=== PATIENT | male | born 1940 | race Caucasian/White ===

== ENCOUNTER 2023-10-04 18:22 | Observation (INO) | payer OTHER, SELFPAY ==
[2023-10-04 12:29] VITALS: BP 130/70
[2023-10-04 12:35] VITALS: BMI 24.6
[2023-10-04 13:02] LABS: % Basophils 0.6 % (0-2); % Eosinophils 4.4 % (0-6); % Immature Granulocytes 0.3 % (0-0.5); % Lymphocytes 28.5 % (20.5-51.1); % Monocytes 8.5 % (1.7-9.3); % Neutrophils 57.7 % (42.2-75.2); Absolute Basophils 0.1 10^3/uL (0-0.2); Absolute Eosinophils 0.3 10^3/uL (0-0.7); Absolute Lymphocytes 2.2 10^3/uL (1.2-3.4); Absolute Monocytes 0.7 10^3/uL (0.1-0.6); Absolute Neutrophils 4.5 10^3/uL (1.4-6.5); Hematocrit 38.9 % (39.0-52.0); Hemoglobin 13.3 g/dL (13.0-18.0); Mean Corp Hgb Conc. 34.2 g/dL (33.0-37.0); Mean Corpuscular Hgb 30.3 pg (27.0-31.0); Mean Corpuscular Volume 88.6 fL (80.0-94.0); Mean Platelet Volume 8.5 fL (7.4-10.4); Nucleated Red Blood Cells % 0 % (-); Platelet Count 282 10^3/uL (130-400); Red Blood Cell Count 4.39 10^6/uL (4.70-6.10); Red Cell Dist. Width 13.2 % (11.5-14.5); White Blood Cell Count 7.8 10^3/uL (4.8-10.8)
[2023-10-04 13:10] LABS: ALT (SGPT) 24 U/L (0-50); AST (SGOT) 36 U/L (17-59); Albumin 3.7 g/dl (3.5-5.0); Alkaline Phosphatase 126 U/L (38-126); Blood Urea Nitrogen 21 mg/dl (9-20); Calcium 9.1 mg/dl (8.4-10.2); Carbon Dioxide 28 mmol/L (22-30); Chloride 103 mmol/L (98-107); Glucose 104 mg/dl (70-99); Potassium 5.3 mmol/L (3.5-5.1); Sodium 133 mmol/L (135-145); Total Bilirubin 0.7 mg/dl (0.2-1.3); Total Protein 6.2 g/dl (6.3-8.2); eGFR > 60.00
[2023-10-04 13:16] LABS: Troponin I 0.044 ng/ml
--- NOTE | 2023-10-04 13:22 | ED.GENMED ---
History of Present Illness
General
Chief Complaint: Musculo-Skeletal Complaint
Time Seen by Provider: 10/04/23 13:22
Travel History
Have you had any contact with someone who has COVID-19?: No
Do you have any symptoms of coronavirus? Fever > 100 degrees, chills, cough, shortness of breath, sore throat, loss of taste or smell, muscle aches, or headache?: No
History of Present Illness
History of Present Illness:
HPI: Patient presents due to left shoulder pain. He does have a history of CABG from this past August. He denies chest pain. He tells me that either his deicer finisher or cardiothoracic surgeon sent him here for further evaluation
EXAM:
GENERAL: Well appearing in mild distress
HEENT: Moist oral mucosa
CARDIOVASCULAR: No murmurs, normal heart rate and rhythm, No chest wall tenderness
PULMONARY: No respiratory distress, breath sounds are clear and equal
ABDOMEN: Soft with no peritoneal signs, no tenderness
NEUROLOGIC: Excellent strength all extremities, no coordination deficits
PSYCHIATRIC: Appropriate mental status, normal insight and judgement
EXTREMITIES: Nontender, no edema, moves all extremities equally, there is no significant tenderness to palpation in the biceps region or in the shoulder region
SKIN: No rash, no lesions
ED COURSE:
12:45 PM: I initially evaluated patient
NUMBER AND COMPLEXITY OF PROBLEMS ADDRESSED AT THE ENCOUNTER
� Chronic conditions affecting care: Former smoker, CABG/CAD, high blood pressure, hyperlipidemia, prostate/skin cancer
� Acute Exacerbation and/or Progression of Chronic Illness:
� Differential Diagnosis includes: Musculoskeletal type of pain, ACS
AMOUNT AND/OR COMPLEXITY OF DATA TO BE REVIEWED AND ANALYZED
� I performed an independent evaluation of and my interpretation is:
EKG: Sinus 72, left axis, bifascicular block without significant change from EKG from yesterday, however the ST segments are somewhat changed in comparison to 08/27/2023
CT:
X-rays: I personally reviewed x-rays of the chest and shoulder which shows no clear abnormality
Laboratory Studies: Troponin today 0.044 with unchanged second troponin, potassium borderline elevated at 5.3
Other:
� Review of other/old records: I reviewed the discharge summary from 08/30/2023, the patient had a CABG this past admission (5 weeks ago), his troponin last admission peaked at 23.8
� Clinical information was obtained by an independent historian: Spoke to family at bedside.
� Prescriptions/Medications Considered but not given:
� Further testing considered but not performed:
RISK OF COMPLICATIONS AND/OR MORBIDITY OR MORTALITY OF PATIENT MANAGEMENT
� Social determinants of health affecting care: Lives at home
� Discussion with other providers: Discussed with Dr. Bell, ultimate recommendation is for him to stay on hospital service for pain control
� Escalation of care including admission/observation vs risk of discharge considered: The patient's pain is poorly controlled despite tramadol. Will give IV Dilaudid. Troponin is slightly elevated. However it is much lower
than prior. Cardiology did evaluate in the ER.
Phy Exam
Physical Exam
Physical Exam:
See HPI
Course
Orders/Labs/Results
Orders:
Orders
10/04/23 12:34
EKG [Electrocardiogram (*1)] Urgent
Reason for Study: Other
Other Reason for Exam: c/o left shoulder and arm pain. Recent CABG
10/04/23 12:35
EKG- Treatment ONCE
10/04/23 12:44
CMP [Comprehensive Metabolic Panel] Urgent
Complete Blood Count/With Diff Urgent
Troponin I Urgent
10/04/23 13:39
CR Chest - 2 Views Urgent
Comment:
Reason For Exam: L pain
10/04/23 13:40
Shoulder, Left 2 View CR [CR Shoulder - Left Min 2 View*] Urgent
Comment:
Reason For Exam: pain
10/04/23 13:43
Tramadol HCl [Ultram] 50 mg PO NOW STA
10/04/23 16:26
Troponin I Urgent
10/04/23 16:45
HYDROmorphone [Dilaudid] 0.5 mg IV NOW STA
10/04/23 17:37
Sodium Zirconium Cyclosilicate [Lokelma] 10 gram PO NOW STA
Abnormal Lab Results
10/04/23 10/04/23
12:44 16:26
RBC 4.39 L 10^6/uL
(4.70-6.10)
Hct 38.9 L %
(39.0-52.0)
Absolute Monos (auto) 0.7 H 10^3/uL
(0.1-0.6)
Sodium 133 L mmol/L
(135-145)
Potassium 5.3 H mmol/L
(3.5-5.1)
BUN 21 H mg/dl
(9-20)
Glucose 104 H mg/dl
(70-99)
Troponin I 0.044 H* ng/ml 0.043 H* ng/ml
Total Protein 6.2 L g/dl
(6.3-8.2)
10/04/23 12:44
10/04/23 12:44
Vital Signs
Initial and Last Documented VS:
Initial Vital Signs
Temp Pulse Resp BP Pulse Ox
97.9 F 75 18 130/70 97
10/04/23 12:29 10/04/23 12:29 10/04/23 12:29 10/04/23 12:29 10/04/23 12:29
Last Documented Vital Signs
Temp Pulse Resp BP Pulse Ox
97.9 F 64 16 116/64 96
10/04/23 12:29 10/04/23 16:00 10/04/23 16:00 10/04/23 16:00 10/04/23 16:00
*Critical Care Note
Total Time (30-74mins, 75-104mins- exclusive of procedures): Not Applicable
ED Attending Note
-
Portions of this chart may have been created with voice recognition software.� Occasional wrong word or��sound alike� substitutions may have occurred due to the inherent limitations of voice recognition software.
Discharge Plan
Departure
Patient Disposition: Admit
Date of Disposition: 10/04/23
Time of Disposition: 16:49
Presentation/result/management discussed w/ accepting MD/DO: Hospitalist
Discharge Problem:
Intractable pain
Prescriptions:
No Action
therapeutic multivitamin Tablet
1 tab PO DAILY
docusate sodium [Colace] 100 mg Capsule
100 mg PO QPM
aspirin [Children's Aspirin] 81 mg Tablet,Chewable
81 mg PO DAILY Qty: 0 3RF
atorvastatin 80 mg Tablet
80 mg PO QPM Qty: 30 2RF
clopidogrel 75 mg Tablet
75 mg PO DAILY Qty: 90 3RF
acetaminophen 325 mg Tablet
650 mg PO Q6HPRN PRN (Reason: mild pain,headache) Qty: 0 0RF
lisinopril 20 mg Tablet
20 mg PO DAILY
metoprolol tartrate 25 mg tablet
50 mg PO DAILY
Referrals:
Kade Stover MD [Family Provider] -
Interventions
Interventions:
*Risk Screen - Suicide Last Done: 10/04/23 14:41
*Neglect/Abuse Screening Last Done: 10/04/23 14:41
*ED COVID-19 Vaccine History Last Done: 10/04/23 12:29
ED-Musculoskeletal Assessment Last Done: 10/04/23 14:34
[2023-10-04 13:25] VITALS: BP 132/68
[2023-10-04 14:00] VITALS: BP 123/68
[2023-10-04] MEDS: ULTRAM 50 MG PO (14:11)
[2023-10-04 16:00] VITALS: BP 116/64
--- NOTE | 2023-10-04 16:11 | CON.CAR ---
Addendum entered and electronically signed by Isabelle Valadez MD 10/04/23 17:49:
I saw and examined the patient.
The Missing Persons Investigator's note was reviewed and I agree with the note.
Comment: Mr. Norris is known to me from recent admission for acute coronary syndrome with cath showing multivessel disease for which she underwent a CABG. Briefly he is an 82-year-old gentleman with past medical history of hypertension,
hyperlipidemia, baseline bifascicular block, recent NSTEMI with troponin peaking at 23 in August 2023 status post off-pump CABG with PARSONS to LAD, SVG to OM and PDA along with BLAIR 35mm clip on August 26, 2023 presenting with episodic left
shoulder blade and left bicep pain occurring since without particular trigger. These episodes certainly are not exertional in nature. He has been ambulating within the home and taking flights of stairs within his home without worsening of
symptoms. No improvement with Tylenol. Given ongoing symptoms he was directed to the emergency department for further evaluation. He received 1 dose of tramadol in the emergency department with some relief in the discomfort.
Vital signs are stable. ECG with no obvious acute ischemic changes. Lab work reviewed. Exam notable for an older gentleman in no acute distress, normal S1 and S2, no murmurs, rubs or gallops, no JVD, lungs are clear to auscultation bilaterally,
sternotomy scar is well-healing, warm extremities without significant edema.
Troponin on presentation was 0.044 with repeat at 0.043.
Recommendations:
-By history, this does not sound to be cardiac in nature. So far no evidence of acute coronary syndrome. Troponins are very low-level and flat with no acute ischemic changes on EKG. His symptoms are different from his recent ACS event.
-Given recent CABG, for thoroughness, we will trend out 3 total troponins and check an echocardiogram.
-Currently, no indication for further ischemic workup pending troponin trend and echocardiogram results.
-Pain control per primary team.
Isabelle Valadez MD, [facility], [facility]
Original Note:
Consultation
Consultation Request
Date/Time Consultation Requested: 1/30/24
Date/Time Consultation Performed: 10/04/23
Requesting Provider: Dr. Huerta in the ER
Performing Provider: Dr. Valadez
Reason for Consultation: Left arm and bicep pain
Medical History
-
History of Present Illness:
Patient came to [facility] today with left shoulder blade and biceps pain and cardiology is consulted. Patient came to [facility] with [facility] on 08/22/23. Hs initial Troponin was 1.09 and he was taken to the director of cardiac cath lab that day and found to have multivessel CAD.
Patient had CABG 08/26/23. He did well and was discharged to home 08/30/23. Patient was seen in the CT surgery office 09/26/23 and was doing well. He started with the left scapular and biceps pain on 09/28/23 and then had an intense night of pain on
09/29/23 where he says biceps pain lasted for hours and nothing made it better. No relief with Tylenol at home. No relief with massage of the area. Pain is unchanged with activity like stairs in his home. Patient called the CT surgery office and they
sent him for an outpatient ECG yesterday that was unchanged from previous. Due to ongoing pain the patient came to the ER today. Initial Troponin 0.044 and then 0.043. Last Troponin prior to discharge last admission was from 08/23/23 and it was
20.3. No rashes.
PMH:
CAD
s/p NSTEMI peak Troponin 08/2023
s/p off-pump CABG with a PARSONS to LAD, saphenous vein graft to OM and saphenous vein graft to PDA, BLAIR #35mm clip 08/26/23
HTN
Hyperlipidemia
Bifascicular block
Past Medical History
Past Surgical History: Cardiac (CABG) and Orthopedic
Social History
Tobacco: Former Smoker
Alcohol: None
Drug: None
Personal:
Living: With Family
Employment: Retired
Family History
Family History: CAD
Allergies / Home Medications
Allergy/AdvReac Type Severity Reaction Status Date / Time
No Known Allergies Allergy Verified 10/04/23 12:34
Medication Instructions Recorded Confirmed Type
docusate sodium 100 mg capsule 100 mg PO QPM Constipation 08/22/23 10/04/23 History
(Colace)
therapeutic multivitamin 1 tab PO DAILY Supplement 08/22/23 10/04/23 History
acetaminophen 325 mg tablet 650 mg PO Q6HPRN PRN mild 08/29/23 10/04/23 Rx
pain,headache #0 tabs
aspirin 81 mg chewable tablet 81 mg PO DAILY Blood clot 08/29/23 10/04/23 Rx
(Children's Aspirin) prevention/tx #0 tabs
atorvastatin 80 mg tablet 80 mg PO QPM High cholesterol #30 08/29/23 10/04/23 Rx
tabs
clopidogrel 75 mg tablet 75 mg PO DAILY Blood clot 08/29/23 10/04/23 Rx
prevention/tx #90 tabs
lisinopril 20 mg tablet 20 mg PO DAILY 10/04/23 10/04/23 History
metoprolol tartrate 25 mg tablet 50 mg PO DAILY Heart 10/04/23 10/04/23 History
disease/condition
Review of Systems
-
History Source: Patient and Family ( sitting bedside helping with HPI)
All other systems: Negative unless noted
Physical Exam
Vital Signs
Temp Pulse Resp BP Pulse Ox
97.9 F 65 18 123/68 98
10/04/23 12:29 10/04/23 14:00 10/04/23 12:10/04/23 14:00 10/04/23 14:00
GEN: No distress, AAO x3
HEENT: EOMI, wearing glasses, MMM
LUNGS: CTA B/L, no wheezes or rales
CV: Reg, S1/S2, no murmur
ABD: soft, BS+, NT, ND
EXT: No clubbing, cyanosis, lesions or edema B/L
NEURO: Gross non-focal
SKIN: Warm, dry and pink. No rash
Lab Results
10/04/23 12:44
10/04/23 12:44
Troponin I 0.044 ng/ml H* 10/04/23 12:44
Impression / Plan
-
PCP: Dr. Stover
Cardiology: Dr. Stanley, last seen for pre-op clearance 12/02/16
Impression:
Left arm and biceps pain
CAD
s/p NSTEMI peak Troponin 08/2023
s/p off-pump CABG with a PARSONS to LAD, saphenous vein graft to OM and saphenous vein graft to PDA, BLAIR #35mm clip 08/26/23
HTN
Hyperlipidemia
Bifascicular block
Hyperkalemia
Echo 12/07/2016:�EF 55 to 60%, normal regional wall motion, mild LVH, stage I diastolic dysfunction, normal RV size and function
Cardiac cath 08/22/2023: 70% distal left main, 40-50% ostial LAD, 50% mid LAD, small ramus with luminal irregularities, 50% ostial left circumflex, 60-70% proximal circumflex, hazy 80/85% proximal OM1 stenosis, RCA with 70% proximal stenosis, no PCI
performed
Echo 08/22/2023: EF 55-60%, trace MR, mild TR
Plan:
-Patient came to [facility] today with left shoulder blade and biceps pain and cardiology is consulted. Patient came to [facility] with SSCP on 08/22/23. Hs initial Troponin was 1.09 and he was taken to the director of cardiac cath lab that day and found to have multivessel CAD.
Patient had CABG 08/26/23. He did well and was discharged to home 08/30/23. Patient was seen in the CT surgery office 09/26/23 and was doing well. He started with the left scapular and biceps pain on 09/28/23 and then had an intense night of pain on
09/29/23 where he says biceps pain lasted for hours and nothing made it better. No relief with Tylenol at home. No relief with massage of the area. Pain is unchanged with activity like stairs in his home. Patient called the CT surgery office and they
sent him for an outpatient ECG yesterday that was unchanged from previous. Due to ongoing pain the patient came to the ER today. Initial Troponin 0.044 and then 0.043. Last Troponin prior to discharge last admission was from 08/23/23 and it was
20.3. No rashes.
-Patient with fairly constant left scapular and biceps pain. It is different than what he described as his angina last admission.
-Troponin could still be trending down from [place] last admission.
-Check echo
-Tramadol in the ER helped, would continue.
-Doubt ACS at this time.
-Recheck BMP and Troponin tonight. Hyperkalemia on ER labs could be hemolysis.
-Hgb stable
[2023-10-04] MEDS: DILAUDID 0.5 MG IV (16:54)
[2023-10-04 17:19] LABS: Troponin I 0.043 ng/ml
--- NOTE | 2023-10-04 17:19 | HPS.HSE ---
Addendum entered and electronically signed by Omer Hardy MD 10/04/23 18:56:
I saw and examined the patient.
The PLUGGER WORKER or PA's note was reviewed and I agree with the note.
Comment: 82-year-old male with recent CABG came to the hospital with left shoulder pain which is radiating to his left bicep. Seen by cardiology in the ED. Monitor EKG. Trend troponin. X-ray does not show any fracture. admit to tele.
General:�Comfortable, Conversant and Pain (Left arm to left bicep); No Fever
HEENT:�NormoCephalic, Anicteric, PERRLA, [place] Conjunctivae and No Ptosis
Respiratory:�Clear; No Wheezes, Rales or Rhonchi
Cardiac:�S1/S2, Regular Rhythm and Other (Sternal incision intact negative erythema or drainage); No Murmur, Rub, Gallop or Peripheral Edema
Breast:�Deferred by me
GI:�Soft, Non Tender, Non Distended, Normal Bowel Sounds and No Hepatosplenomegaly
Rectal:�Deferred by Provider
Genito-urinary:�Deferred by me
Musculoskeletal:�No Clubbing, No Cyanosis and No Edema
Skin:�Warm and Dry; No Rash or Jaundice
Neuro:�AO x 3, No Motor Deficits, Nonfocal/grossly intact, Cranial Nerves Intact and No Sensory Deficits; No Slurred Speech or Facial Droop
Psych:�Calm
Original Note:
Family Physician
-
Family Physician: Kade Stover
Chief Complaint
-
Left shoulder pain to left bicep
History of Present Illness
82-year-old male complaining of left shoulder plain to left bicep over the past 5 days. He reports it started after playing videogames at a computer although it does not change with movement. He denies radiation of pain, fever, chills, midsternal
chest pain, shortness breath, cough, abdominal pain, nausea, vomiting, diarrhea, urinary symptoms. He was seen yesterday and had EKG showed bifascicular block with lateral ST abnormality that was not as prominent at discharge on 08/27 he was sent
to ER for evaluation
The patient had a recent admission 08/22 - 08/30/2023 status post non-ST elevation [place] CABG x3 left internal mammary artery to LAD, reverse origin his right greater saphenous vein from ascending aorta to obtuse marginal coronary artery and segment of
reverse right greater saphenous vein from ascending aorta to posterior descending artery. Along with left atrial appendage ligation with clip
His other past medical history includes hypertension, hyperlipidemia, prostate cancer status post prostatectomy, history of spinal surgery, history of right hip replacement, GERD.
Medical History
Past Medical History
Past Medical History: Reports Other (Hypertension, hyperlipidemia, bifascicular heart block, NSTEMI August 2023, spinal stenosis, OA)
Past Surgical History: Reports Orthopedic and Other
Additional Past Surgical History:
08/2023 non-ST elevation [place] CABG x3 left internal mammary artery to LAD, reverse origin his right greater saphenous vein from ascending aorta to obtuse marginal coronary artery and segment of reverse right greater saphenous vein from ascending aorta
to posterior descending artery. Along with left atrial appendage ligation with clip
Social History
Tobacco: Former Smoker
Alcohol: None
Drug: None
Personal:
Living: With Family
Employment: Retired
Family History
Family History: Other (Brother rheumatic fever history of SVT age 63, father alcohol abuse COPD, mother unsure, other sister living in mental health facility)
Allergies / Home Medications
Allergies reflects when Allergies were last updated in [employer].
Home Medications with original date entered in [employer]
Allergy/Medication List:
Allergies
Allergy/AdvReac Type Severity Reaction Status Date / Time
No Known Allergies Allergy Verified 10/04/23 12:34
Home Medications
docusate sodium 100 mg capsule (Colace) 100 mg PO QPM Constipation 08/22/23
therapeutic multivitamin 1 tab PO DAILY Supplement 08/22/23
acetaminophen 325 mg tablet 650 mg PO Q6HPRN PRN mild pain,headache #0 tabs 08/29/23
aspirin 81 mg chewable tablet (Children's Aspirin) 81 mg PO DAILY Blood clot prevention/tx #0 tabs 08/29/23
atorvastatin 80 mg tablet 80 mg PO QPM High cholesterol #30 tabs 08/29/23
clopidogrel 75 mg tablet 75 mg PO DAILY Blood clot prevention/tx #90 tabs 08/29/23
lisinopril 20 mg tablet 20 mg PO DAILY 10/04/23
metoprolol tartrate 25 mg tablet 50 mg PO DAILY Heart disease/condition 10/04/23
Review of Systems
-
History Source: Patient and Family ( at bedside)
Constitutional: Denies Fever or Fatigue
EENT: Denies Sore Throat or Runny Nose
Respiratory: Denies Cough or Trouble Breathing
Cardiac: Denies Chest Pain, Diaphoresis, Palpitations or Syncope
Abdomen/GI: Denies Abdominal Pain, Nausea, Vomiting, Diarrhea, Constipated, Bloody Stools or Black Stools
: Denies Frequency, Flank Pain, Incontinence or Difficulty Voiding
Musculoskeletal: Reports Other (Pain left shoulder to left bicep); Denies Joint Pain or Edema
Skin: Denies Itching or Rash
Neurological: Denies Dizzy, Headache or Weakness
Endocrine: Reports No Symptoms
Hematologic/Lymphatic: Reports No Symptoms
Psych: Reports Calm
Physical Exam
Vital Signs
Vital Signs
Temp Pulse Resp BP Pulse Ox
97.9 F 64 16 116/64 96
10/04/23 12:29 10/04/23 16:00 10/04/23 16:00 10/04/23 16:00 10/04/23 16:00
Physical Exam
General: Comfortable, Conversant and Pain (Left arm to left bicep); No Fever
HEENT: NormoCephalic, Anicteric, PERRLA, [place] Conjunctivae and No Ptosis
Respiratory: Clear; No Wheezes, Rales or Rhonchi
Cardiac: S1/S2, Regular Rhythm and Other (Sternal incision intact negative erythema or drainage); No Murmur, Rub, Gallop or Peripheral Edema
Breast: Deferred by me
GI: Soft, Non Tender, Non Distended, Normal Bowel Sounds and No Hepatosplenomegaly
Rectal: Deferred by Provider
Genito-urinary: Deferred by me
Musculoskeletal: No Clubbing, No Cyanosis and No Edema
Skin: Warm and Dry; No Rash or Jaundice
Neuro: AO x 3, No Motor Deficits, Nonfocal/grossly intact, Cranial Nerves Intact and No Sensory Deficits; No Slurred Speech or Facial Droop
Psych: Calm
Laboratory Results
-
10/04/23 12:44
10/04/23 12:44
Laboratory Results
Total Bilirubin 0.7 mg/dl (0.2-1.3) 10/04/23 12:44
AST 36 U/L (17-59) 10/04/23 12:44
ALT 24 U/L (0-50) 10/04/23 12:44
Alkaline Phosphatase 126 U/L (38-126) 10/04/23 12:44
Troponin I 0.044 ng/ml H* 10/04/23 12:44
Data Reviewed
-
Lab Data: Labs Reviewed by me
Impression/Plan
-
Impression/plan:
Observation telemetry
#Left periscapular pain to bicep with EKG changes concern for ACS
-Troponin 0.043, 2nd 0.042, trend troponin he had Trope as high as 23 during August admit
-Follow EKG
-Consult [facility] cardiology
prn dilaudid
EKG from 10/03/2023: HR 62 bpm NSR bifascicular block, T wave inversion in anterolateral leads compared to prior August 27, 2023
EKG today 10/04/2023: 72 bpm NSR bifascicular block T wave inversions anterior lateral leads same as compared to yesterday October 03, 2023
Shoulder x-ray no acute fracture or dislocation
CXR: No acute cardiopulmonary process
#Non-ST elevation [place] 08/22/2023
status post CABG x [address] Hamm
-Continue aspirin, atorvastatin 80 mg, Plavix 75 mg x 1 year, Protonix 40 mg daily, metoprolol tartrate 25 mg every 12 hours
#HTN�benign
116/64
-Continue metoprolol tartrate 25 mg twice daily
#HLD
-Continue atorvastatin 80 mg at bedtime
#GERD
Continue Protonix 40 mg daily
DVT prophylaxis
Subcu heparin
Full code
[2023-10-04] MEDS: LOKELMA 10 GRAM PO (18:01)
[2023-10-04 18:57] VITALS: BMI 24.1
[2023-10-04 18:59] VITALS: BP 152/72
[2023-10-04] MEDS: LIPITOR 80 MG PO (19:47)
[2023-10-04] MEDS: HEPARIN 5000 UNITS SC (19:47)
--- NOTE | 2023-10-04 20:15 | PTCARENOTE ---
Received patient from ED, AAOx4. Patient ambulated to his bed with stead gait. No c/o pain at this time. Patient reports that when he takes his pills that occasionally they feel like they get stuck in his throat. Speech screening done. Patient
took medications and water without difficulty. Oriented to unit, call marquez in reach. Plan of care continues
[2023-10-04 21:37] LABS: Blood Urea Nitrogen 19 mg/dl (9-20); Calcium 9.1 mg/dl (8.4-10.2); Carbon Dioxide 30 mmol/L (22-30); Chloride 98 mmol/L (98-107); Estimated Creatinine Clearance 52 ml/min; Glucose 113 mg/dl (70-99); Potassium 3.7 mmol/L (3.5-5.1); Sodium 134 mmol/L (135-145); eGFR > 60.00
[2023-10-04 21:40] LABS: Troponin I 0.044 ng/ml
[2023-10-04 23:39] VITALS: BP 116/71
[2023-10-05] VITALS (7 sets, daily range): BP systolic 105–127; BP diastolic 49–73; PULSE 67–79; O2SAT 96–97
[2023-10-05] MEDS: TYLENOL 650 MG PO (04:09)
[2023-10-05 08:01] LABS: % Basophils 0.6 % (0-2); % Lymphocytes 33.8 % (20.5-51.1); % Monocytes 9.4 % (1.7-9.3); % Neutrophils 49.2 % (42.2-75.2); Absolute Eosinophils 0.4 10^3/uL (0-0.7); Absolute Lymphocytes 2.1 10^3/uL (1.2-3.4); Absolute Monocytes 0.6 10^3/uL (0.1-0.6); Hematocrit 37.9 % (39.0-52.0); Hemoglobin 12.8 g/dL (13.0-18.0); Mean Corp Hgb Conc. 33.8 g/dL (33.0-37.0); Mean Corpuscular Hgb 29.9 pg (27.0-31.0); Mean Corpuscular Volume 88.6 fL (80.0-94.0); Mean Platelet Volume 8.7 fL (7.4-10.4); Nucleated Red Blood Cells % 0 % (-); Platelet Count 241 10^3/uL (130-400); Red Blood Cell Count 4.28 10^6/uL (4.70-6.10); Red Cell Dist. Width 13.2 % (11.5-14.5); White Blood Cell Count 6.2 10^3/uL (4.8-10.8)
[2023-10-05] MEDS: LOW STRENGTH ASPIRIN 81 MG PO (08:29)
[2023-10-05] MEDS: ZESTRIL 20 MG PO (08:29)
[2023-10-05] MEDS: PLAVIX 75 MG PO (08:30)
[2023-10-05] MEDS: LOPRESSOR 50 MG PO (08:30)
[2023-10-05] MEDS: THERAGRAN 1 TABLET PO (08:30)
[2023-10-05] MEDS: HEPARIN 5000 UNITS SC (08:31)
[2023-10-05] MEDS: LIDOCAINE 4% PATCH 1 PATCH TOPICAL (08:35)
[2023-10-05 08:44] LABS: Blood Urea Nitrogen 15 mg/dl (9-20); Calcium 8.8 mg/dl (8.4-10.2); Carbon Dioxide 30 mmol/L (22-30); Chloride 102 mmol/L (98-107); Estimated Creatinine Clearance 52 ml/min; Glucose 79 mg/dl (70-99); HDL Cholesterol 32 mg/dl; LDL Cholesterol, Calculated 42 mg/dl; Potassium 4.4 mmol/L (3.5-5.1); Sodium 135 mmol/L (135-145); Total Cholesterol 98 mg/dl (50-199); Triglyceride 123 mg/dl (10-149); Very Low Density Lipoprotein 24 mg/dl (0-30); eGFR > 60.00
--- NOTE | 2023-10-05 10:43 | W.PN.HOSP.TC ---
Addendum entered and electronically signed by Omer Hardy MD 10/05/23 15:23:
Echo looked okay. Patient will be discharged today
Time of discharge 33 minutes
Original Note:
Today's Communication/Plan
-
Monitor vital signs and see plan
pain slowly improving, apply lidocaine patch
PT/OT
Possible discharge today if okay with cardiology
Assessment / Plan
Assessment / Plan
General:�Comfortable, Conversant and Pain (Left arm to left bicep); No Fever
HEENT:�NormoCephalic, Anicteric, PERRLA, [place] Conjunctivae and No Ptosis
Respiratory:�Clear; No Wheezes, Rales or Rhonchi
Cardiac:�S1/S2, Regular Rhythm and Other (Sternal incision intact negative erythema or drainage); No Murmur, Rub, Gallop or Peripheral Edema
Breast:�Deferred by me
GI:�Soft, Non Tender, Non Distended, Normal Bowel Sounds and No Hepatosplenomegaly
Rectal:�Deferred by Provider
Genito-urinary:�Deferred by me
Musculoskeletal:�No Clubbing, No Cyanosis and No Edema
Skin:�Warm and Dry; No Rash or Jaundice
Neuro:�AO x 3, No Motor Deficits, Nonfocal/grossly intact, Cranial Nerves Intact and No Sensory Deficits; No Slurred Speech or Facial Droop
Psych:�Calm
Left periscapular pain to bicep suspect musculoskeletal
Suspect non-[place] related troponin elevation
-Troponin 0.043, 2nd 0.042, trend troponin he had Trope as high as 23 during August admit; trop benign
- cardiology following
�prn dilaudid
� � � � EKG from 10/03/2023:�HR 62 bpm NSR bifascicular block, T wave inversion in anterolateral leads compared to prior August 27, 2023
� � � � EKG today 10/04/2023:�72 bpm NSR bifascicular block T wave inversions anterior lateral leads same as compared to yesterday October 03, 2023
� � ��Shoulder x-ray no acute fracture or dislocation
�� ���CXR: No acute cardiopulmonary process
#Non-ST elevation [place] 08/22/2023
status post CABG x [address] Hamm
-Continue aspirin, atorvastatin 80 mg, Plavix 75 mg x 1 year, Protonix 40 mg daily, metoprolol tartrate 25 mg every 12 hours
#HTN�benign
-Continue metoprolol tartrate 25 mg twice daily
#HLD
-Continue atorvastatin 80 mg at bedtime
#GERD
Continue Protonix 40 mg daily
DVT prophylaxis
Subcu heparin
Full code
Anticipated Discharge: Today
Subjective/Interval History
-
Date of Service: October 05, 2023
pain is getting better
Objective Data
-
Labs:
Laboratory Results
10/05/23
07:02
WBC 6.2
Hgb 12.8 L
Hct 37.9 L
Plt Count 241
Sodium 135
Potassium 4.4
Chloride 102
Carbon Dioxide 30
BUN 15
Creatinine 1.0
Glucose 79
Calcium 8.8
Vital Signs:
Vital Signs
Temp Pulse Resp BP Pulse Ox
97.3 F 79 16 127/67 97
10/05/23 07:00 10/05/23 07:00 10/05/23 07:00 10/05/23 07:00 10/05/23 07:00
[2023-10-05] MEDS: DILAUDID 0.5 MG IV (11:06)
--- NOTE | 2023-10-05 11:22 | PTOTSP ---
PATIENT ABLE TO MOBILIZE INDEPENDENTLY ON LEVEL SURFACES WELL ELEVATIONS. PATIENT WITH NO INCREASE IN PAIN FROM 4/10 WITH CONTINUED MOBILITY. PATIENT REQUIRES NO FURTHER ACUTE CARE SKILLED P.T. AT THIS TIME. WILL DISCHARGE FROM P.T. SERVICES.
--- NOTE | 2023-10-05 11:33 | W.PN.CARDCBS ---
Today's Communication / Plan
-
Check echocardiogram. If echo stable okay for discharge.
Continue medical therapy for CAD.
Pain seem very atypical.
Impression / Plan
-
PCP: Dr. Stover
Cardiology: Dr. Stanley, last seen for pre-op clearance 12/02/16
Impression:
Left arm and biceps pain
CAD
s/p NSTEMI peak Troponin 08/2023
s/p off-pump CABG with a PARSONS to LAD, saphenous vein graft to OM and saphenous vein graft to PDA, BLAIR #35mm clip 08/26/23
HTN
Hyperlipidemia
Bifascicular block
Hyperkalemia
Echo 12/07/2016:�EF 55 to 60%, normal regional wall motion, mild LVH, stage I diastolic dysfunction, normal RV size and function
Cardiac cath 08/22/2023: 70% distal left main, 40-50% ostial LAD, 50% mid LAD, small ramus with luminal irregularities, 50% ostial left circumflex, 60-70% proximal circumflex, hazy 80/85% proximal OM1 stenosis, RCA with 70% proximal stenosis, no PCI
performed
Echo 08/22/2023: EF 55-60%, trace MR, mild TR
Plan:
-Clinically is improved and pain seem better. Troponins are in the indeterminate zone and stable.
-Check echocardiogram. If echocardiogram is stable okay for discharge with continued pain control.
Continue aspirin, Plavix, atorvastatin, metoprolol, and lisinopril.
Has follow-up arranged with Dr. Smith in several weeks.
Progress Note - Customer Marketing Manager
Subjective
Date of Service: October 05, 2023
Shoulder pain and arm pains are improved. No shortness of breath
Objective
Labs:
10/05/23 07:02
10/05/23 07:02
Labs
Hgb 12.8 g/dL (13.0-18.0) L 10/05/23 07:02
Hct 37.9 % (39.0-52.0) L 10/05/23 07:02
Plt Count 241 10^3/uL (130-400) 10/05/23 07:02
Sodium 135 mmol/L (135-145) 10/05/23 07:02
Potassium 4.4 mmol/L (3.5-5.1) 10/05/23 07:02
BUN 15 mg/dl (9-20) 10/05/23 07:02
Creatinine 1.0 mg/dL (0.7-1.3) 10/05/23 07:02
Glucose 79 mg/dl (70-99) 10/05/23 07:02
Troponins
10/04/23 10/04/23 10/04/23
12:44 16:26 21:07
Troponin I 0.044 H* 0.043 H* 0.044 H*
Vital Signs and I&O:
Vital Signs
Temp Pulse Resp BP Pulse Ox
97.5 F 65 20 116/ 96
10/05/23 11:00 10/05/23 11:00 10/05/23 11:00 10/05/23 11:00 10/05/23 11:00
Vital Signs
Temp Pulse Resp BP Pulse Ox
97.5 F 65 20 116/ 96
10/05/23 11:00 10/05/23 11:00 10/05/23 11:00 10/05/23 11:00 10/05/23 11:00
Physical Exam
Physical Exam
GEN: No distress, awake, Ox3
HEENT: supple, anicteric, mmm
LUNGS: CTA, no wheezes/rales
CV: Reg, S1/S2, 1/6 syst LSB, no gallop
ABD: soft, BS+, NT/ND
EXT: No edema
NEURO: Gross non-focal
SKIN: healed sternotomy
--- NOTE | 2023-10-05 15:25 | W.DCSUMMARY ---
Discharge Summary
Discharge Data
Date of Admission: 10/04/23
Date of Discharge: 10/05/23
-
Pending Results: No
Hospital Course
82-year-old male with past medical history of nonischemic elevation [place], CABG, hypertension, edema, GERD came to the hospital with chest pain with left periscapular pain radiating to the biceps. Patient was seen by cardiology who wanted patient to
be admitted for trending troponin. Patient troponin was mildly elevated which was likely thought was non-OH related. Patient symptoms over time improved. It was determined that patient symptoms could likely be musculoskeletal. Patient had a
echocardiogram which was fairly normal. Since patient symptoms improved, he was then discharged home with close follow-up with all his physicians outpatient.
Discharge Plan
-
Patient Disposition: Home (Routine Discharge)
Discharge Diagnosis/Procedures: Left periscapular pain to bicep suspect musculoskeletal
Known myocardial infarction related troponin elevation
Diet: As tolerated
Activity: As tolerated
Driving Restrictions: As prior to admission
Bathing Restrictions: None
Referrals:
Kade Stover MD [Family Provider] - in less than 1 week
Prescriptions:
New
lidocaine 4 % Adhesive Patch,Medicated
1 patch topical DAILY Qty: 30 0RF
Continued
therapeutic multivitamin Tablet
1 tab PO DAILY
docusate sodium [Colace] 100 mg Capsule
100 mg PO QPM
aspirin [Children's Aspirin] 81 mg Tablet,Chewable
81 mg PO DAILY Qty: 0 3RF
atorvastatin 80 mg Tablet
80 mg PO QPM Qty: 30 2RF
clopidogrel 75 mg Tablet
75 mg PO DAILY Qty: 90 3RF
acetaminophen 325 mg Tablet
650 mg PO Q6HPRN PRN (Reason: mild pain,headache) Qty: 0 0RF
lisinopril 20 mg Tablet
20 mg PO DAILY
metoprolol tartrate 25 mg tablet
50 mg PO DAILY
Discharge Orders:
Discharge Patient (As Directed); Ordered 10/05/23
Ordered By: Omer Hardy
Discharge Date and Time
Discharge Date/Time: 10/05/23 15:48
--- NOTE | 2023-10-05 17:05 | CM ---
CM following re: d/c planning
Chart reviewed
CM met with the patient and his spouse at bedside; IA completed
Pt is here as observation, LAZO letter reviewed & copy provided
Pt states he and his spouse reside in a [address] with [address]
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
Pt has no past SNF hx, has had [facility] in the past and has a spc, r/w bsc,& shower chair for use if needed
Pt has prescription coverage and rx's are filled at [facility] on [address] [place]
Pt PCP-Dr Kade Stover
Pt has been cleared medically for d/c and has no needs
PLAN; d/c home no needs
== END 2023-10-05 15:48 | disposition home or self-care (01) ==
LOC: 4 EAST ACU 18:22
PROVIDERS: Clinical Nurse Specialist Family Health; Emergency Medicine; Physician Assistant Medical; ADMITTING PHYSICIAN Internal Medicine; EMERGENCY PHYSICIAN Emergency Medicine; FAMILY PHYSICIAN Family Medicine; OTHER PHYSICIAN Internal Medicine Interventional Cardiology
DX: M25.512 Pain in left shoulder (principal); M79.602 Pain in left arm; E78.5 Hyperlipidemia, unspecified; I25.10 Atherosclerotic heart disease of native coronary artery without angina pectoris; I10 Essential (primary) hypertension; K21.9 Gastro-esophageal reflux disease without esophagitis; I45.2 Bifascicular block; I25.2 Old myocardial infarction; E87.5 Hyperkalemia; Z95.1 Presence of aortocoronary bypass graft; Z87.891 Personal history of nicotine dependence; Z79.82 Long term (current) use of aspirin; Z79.02 Long term (current) use of antithrombotics/antiplatelets; Z96.641 Presence of right artificial hip joint; Z85.46 Personal history of malignant neoplasm of prostate; Z85.828 Personal history of other malignant neoplasm of skin
CPT/HCPCS: 93308; 71046; 73030; 80048; 80053; 80061; 84484; 85025; 93005; 93321; 93325; 96374; 97161; 97165; 99285; G0378

== ENCOUNTER 2023-11-03 15:23 | Outpatient (RCR) | payer OTHER, SELFPAY | END 2023-11-03 23:59 | disposition home or self-care (01) | LOC: CRHB 15:23 | PROVIDERS: ATTENDING PHYSICIAN Internal Medicine Cardiovascular Disease | DX: I25.10 Atherosclerotic heart disease of native coronary artery without angina pectoris (principal); Z95.1 Presence of aortocoronary bypass graft; I25.2 Old myocardial infarction | CPT/HCPCS: G0422 ==

== ENCOUNTER 2023-12-02 11:09 | Outpatient (RCR) | payer OTHER, SELFPAY | END 2023-12-02 23:59 | disposition home or self-care (01) | LOC: CRHB 11:09 | PROVIDERS: ATTENDING PHYSICIAN Internal Medicine Cardiovascular Disease | DX: Z95.1 Presence of aortocoronary bypass graft (principal); I21.4 Non-ST elevation (NSTEMI) myocardial infarction; I10 Essential (primary) hypertension | CPT/HCPCS: G0422; G0423 ==

== ENCOUNTER 2024-01-02 11:59 | Outpatient (RCR) | payer OTHER, SELFPAY | END 2024-01-02 23:59 | disposition home or self-care (01) | LOC: CRHB 11:59 | PROVIDERS: ATTENDING PHYSICIAN Internal Medicine Cardiovascular Disease | DX: Z95.1 Presence of aortocoronary bypass graft (principal) | CPT/HCPCS: G0422; G0423 ==

== ENCOUNTER 2024-01-25 11:10 | Outpatient (RCR) | payer OTHER, SELFPAY | END 2024-01-25 23:59 | disposition home or self-care (01) | LOC: CRHB 11:10 | PROVIDERS: ATTENDING PHYSICIAN Internal Medicine Cardiovascular Disease | DX: Z95.1 Presence of aortocoronary bypass graft (principal) | CPT/HCPCS: G0422; G0423 ==

== ENCOUNTER → 2025-01-15 10:03 | Outpatient (REF) | payer OTHER, SELFPAY | LOC: RAD 10:03 | PROVIDERS: ATTENDING PHYSICIAN Family Medicine | DX: M25.511 Pain in right shoulder (principal) | CPT/HCPCS: 73030 ==

== ENCOUNTER → 2025-07-16 10:27 | Outpatient (REF) | payer OTHER, SELFPAY | LOC: HWRAD 10:27 | PROVIDERS: ATTENDING PHYSICIAN Family Medicine | DX: M54.16 Radiculopathy, lumbar region (principal) | CPT/HCPCS: 72110; 73502 ==

== ENCOUNTER → 2025-07-31 20:00 | Outpatient (REF) | payer OTHER, SELFPAY | LOC: PAVMRI 20:00 | PROVIDERS: ATTENDING PHYSICIAN Family Medicine | DX: M54.16 Radiculopathy, lumbar region (principal); R29.898 Other symptoms and signs involving the musculoskeletal system | CPT/HCPCS: 72148 ==

== ENCOUNTER 2025-08-03 09:56 | Emergency (ER) | payer OTHER, SELFPAY ==
[2025-08-03 10:04] VITALS: BP 130/71
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
[2025-08-03 11:09] VITALS: BMI 24.9
[2025-08-03] MEDS: DILAUDID 1 MG IM (12:30)
[2025-08-03] MEDS: DECADRON 10 MG PO (12:31)
[2025-08-03] MEDS: TYLENOL 1000 MG PO (14:11)
[2025-08-03 14:12] VITALS: BP 123/52
== END 2025-08-03 14:18 | disposition home or self-care (01) ==
LOC: EMR 09:56
PROVIDERS: EMERGENCY PHYSICIAN Emergency Medicine; FAMILY PHYSICIAN Family Medicine
DX: M54.50 Low back pain, unspecified (principal); M79.604 Pain in right leg; R26.89 Other abnormalities of gait and mobility; R60.0 Localized edema; M48.061 Spinal stenosis, lumbar region without neurogenic claudication; M51.16 Intervertebral disc disorders with radiculopathy, lumbar region; M47.26 Other spondylosis with radiculopathy, lumbar region; M19.90 Unspecified osteoarthritis, unspecified site; I25.10 Atherosclerotic heart disease of native coronary artery without angina pectoris; I10 Essential (primary) hypertension; E78.5 Hyperlipidemia, unspecified; Z85.828 Personal history of other malignant neoplasm of skin; Z85.46 Personal history of malignant neoplasm of prostate; Z87.891 Personal history of nicotine dependence
CPT/HCPCS: 99284; 96372